=== PATIENT | female | born 1995 | race Caucasian/White ===

== ENCOUNTER 2016-10-09 22:26 | Emergency (ER) | payer OTHER ==
[2016-10-09] MEDS ORDERED: Ibuprofen 600 MG Tab PO ONE (23:49)
--- NOTE | 2016-10-10 00:02 | EDM.PDOC ---
ED HPI GENERAL MEDICAL PROBLEM - General Chief Complaint: General Stated Complaint: ABDOMINAL PAIN Time Seen by Provider: 10/09/16 22:37 Source of Information: Reports: Patient, Family History Limitations: Reports: No limitations - History of Present Illness INITIAL COMMENTS - FREE TEXT/NARRATIVE: 20 years old w f came to the ed with her SO due to pain at her left lower and suprapubic area off and on for 4 weeks. Pain goes from 0-10/10 lasting 10 -30 min. No dysuria, denied . No N/V/D or any other acute medical issues at this time. Onset: gradual Onset Date: 09/08/16 Onset Time: 15:00 Duration: Week(s):, Intermittent Location: Reports: abdomen Quality: Reports: Dull Severity: mild Improves with: Reports: None Worsens with: Reports: None Associated Symptoms: Reports: denies other symptoms Abdominal Pain Score (Numeric/FACES): 4 - Related Data Allergies Allergy/AdvReac Type Severity Reaction Status Date / Time No Known Allergies Allergy Verified 10/09/16 22:35 Home Meds: Home Meds NK [No Known Home Meds] 10/09/16 [History] Past Medical History - Past Health History Medical/Surgical History: Denies Medical/Surgical History Social & Family History - Tobacco Use Smoking Status *Q: Never Smoker - Caffeine Use Caffeine Use: Reports: None - Recreational Drug Use Recreational Drug Use: No ED ROS GENERAL - Review of Systems Review Of Systems: See Below Constitutional: Reports: no symptoms HEENT: Reports: No symptoms Respiratory: Reports: No Symptoms Cardiovascular: Reports: No symptoms Endocrine: Reports: no symptoms GI/Abdominal: Reports: No symptoms : Reports: no symptoms Musculoskeletal: Reports: no symptoms Skin: Reports: no symptoms Neurological: Reports: No Symptoms Psychiatric: Reports: No symptoms Hematologic/Lymphatic: Reports: no symptoms Immunologic: Reports: no symptoms ED EXAM, GENERAL - Physical Exam Exam: See Below Exam Limited By: No limitations General Appearance: alert, WD/WN, mild distress Eye Exam: bilateral eye: normal inspection Ears: normal external exam Ear Exam: bilateral ear: auricle normal Nose: normal inspection, normal mucosa, no blood Throat/Mouth: Normal inspection, Normal lips, Normal teeth, Normal gums, Normal oropharynx, Normal voice, No airway compromise Head: atraumatic, normocephalic Neck: normal inspection, supple, non-tender, full range of motion Respiratory/Chest: no respiratory distress, lungs clear, normal breath sounds, no accessory muscle use, chest non-tender Cardiovascular: normal peripheral pulses, regular rate, rhythm, no edema, no gallop, no JVD, no murmur, no rub Peripheral Pulses: 2+: femoral (L), femoral (R) GI/Abdominal: tender (left lower abdomen/suprapubic area) (Female) Exam: Deferred Rectal (Female) Exam: Deferred Back Exam: normal inspection, full range of motion Extremities: normal inspection, normal range of motion, non-tender, no pedal edema, normal capillary refill Neurological: alert, oriented, CN II-XII intact, normal cognition, normal gait, normal reflexes, no motor/sensory deficits Psychiatric: normal affect, normal mood Skin Exam: Warm, Dry, Intact, Normal color, No rash Lymphatic: no adenopathy Course - Vital Signs Text/Narrative:: 20 years old w f came to the ed with her SO due to pain at her left lower and suprapubic area off and on for 4 weeks. Pain goes from 0-10/10 lasting 10 -30 min. No dysuria, denied . No N/V/D or any other acute medical issues at this time. PE: WDWN WF in NAD, mild pain LLQ of abd. 07/14 Labs: WBC 14K Imaging: CT abd. Mas left adnexa 5.7 cm, US pelvic US recommended Impression: Mass left adnexa Tx: Motrin Plan: Pelvic US at 1pm on 10/12/2016 D/C with instructions Last Recorded V/S: Last Vital Signs Temp 36.6 C 10/09/16 22:37 Pulse 87 10/10/16 01:03 Resp 20 10/09/16 22:37 BP 130/78 10/10/16 01:03 Pulse Ox 100 10/09/16 22:37 - Orders/Labs/Meds Orders: Active Orders 24 hr Category Date Time Status Abdomen Pelvis wo Cont [CT] Stat Exams 10/10/16 00:03 Taken CBC WITH AUTO DIFF [HEME] Stat Lab 10/10/16 00:20 Results Labs: Laboratory Tests 10/09/16 10/09/16 10/10/16 Range/Units 23:15 23:15 00:20 WBC 14.7 H (4.5-12.0) X10-3/uL RBC 5.07 (3.23-5.20) x10(6)uL Hgb 13.6 (11.5-15.5) g/dL Hct 41.2 (30.0-51.3) % MCV 81.3 (80-96) fL MCH 26.7 L (27.7-33.6) pg MCHC 32.9 (32.2-35.4) g/dL RDW 14.2 (11.5-15.5) % Plt Count 238 (125-369) X10(3)uL MPV 8.0 (7.4-10.4) fL Add Manual Diff Yes PT (8.7-11.1) INR (0.89-1.13) Sodium (135-145) mmol/L Potassium (3.5-5.3) mmol/L Chloride (100-110) mmol/L Carbon Dioxide (23-29) mmol/L BUN (5-20) mg/dL Creatinine (0.6-1.3) mg/dL Est Cr Clr Drug Dosing mL/min Estimated GFR (MDRD) (>60) BUN/Creatinine Ratio (9-20) Glucose (80-116) mg/dL Calcium (8.6-10.2) mg/dL Urine Color Red (YELLOW) Urine Appearance Slightly cloudy (CLEAR) Urine pH 7.0 H (5.0-6.5) Ur Specific [place] 1.015 (1.010-1.025) Urine Protein Trace (NEGATIVE) mg/dL Urine Glucose (UA) Normal (NEGATIVE) mg/dL Urine Ketones Negative (NEGATIVE) mg/dL Urine Occult Blood Large H (NEGATIVE) Urine Nitrite Negative (NEGATIVE) Urine Bilirubin Negative (NEGATIVE) Urine Urobilinogen Normal (NEGATIVE) mg/dL Ur Leukocyte Esterase Negative (NEGATIVE) Urine RBC 10-20 H (0) Urine WBC 0-5 (0) Ur Squamous Epith Cells Occasional (NS,R,O) Urine Bacteria Few H (NS) Urine HCG, Qual Negative (NEGATIVE) 10/10/16 10/10/16 Range/Units 00:20 00:20 WBC (4.5-12.0) X10-3/uL RBC (3.23-5.20) x10(6)uL Hgb (11.5-15.5) g/dL Hct (30.0-51.3) % MCV (80-96) fL MCH (27.7-33.6) pg MCHC (32.2-35.4) g/dL RDW (11.5-15.5) % Plt Count (125-369) X10(3)uL MPV (7.4-10.4) fL Add Manual Diff PT 11.6 H (8.7-11.1) INR 1.15 H (0.89-1.13) Sodium 136 (135-145) mmol/L Potassium 3.8 (3.5-5.3) mmol/L Chloride 104 (100-110) mmol/L Carbon Dioxide 22 L (23-29) mmol/L BUN 16 (5-20) mg/dL Creatinine 0.8 (0.6-1.3) mg/dL Est Cr Clr Drug Dosing 95.25 mL/min Estimated GFR (MDRD) > 60 (>60) BUN/Creatinine Ratio 20.0 (9-20) Glucose 116 (80-116) mg/dL Calcium 8.9 (8.6-10.2) mg/dL Urine Color (YELLOW) Urine Appearance (CLEAR) Urine pH (5.0-6.5) Ur Specific [place] (1.010-1.025) Urine Protein (NEGATIVE) mg/dL Urine Glucose (UA) (NEGATIVE) mg/dL Urine Ketones (NEGATIVE) mg/dL Urine Occult Blood (NEGATIVE) Urine Nitrite (NEGATIVE) Urine Bilirubin (NEGATIVE) Urine Urobilinogen (NEGATIVE) mg/dL Ur Leukocyte Esterase (NEGATIVE) Urine RBC (0) Urine WBC (0) Ur Squamous Epith Cells (NS,R,O) Urine Bacteria (NS) Urine HCG, Qual (NEGATIVE) Meds: Medications Discontinued Medications Generic Name Dose Route Start Last Admin Trade Name Freq PRN Reason Stop Dose Admin Ibuprofen 600 mg 10/09/16 23:49 10/09/16 23:53 Motrin PO 10/09/16 23:50 600 mg ONETIME ONE Administration Departure - Departure Time of Disposition: 00:54 Disposition: Home, Self-Care 01 Condition: good Clinical Impression: Adnexal mass, Normal menstrual period Instructions: Pelvic Pain, Female, [id number] Referrals: PCP,None [Primary Care Provider] - Forms: ED Department Discharge Additional Instructions: Please take tylenol or motrin for pain, please follow up with US study this wednesday at 1.00 pm her at [facility]. Please come back to the ed if the symptoms are getting worse acutely. - My Orders Last 24 Hours: My Active Orders 10/10/16 00:03 Abdomen Pelvis wo Cont [CT] Stat 10/10/16 00:20 CBC WITH AUTO DIFF [HEME] Stat - Assessment/Plan Last 24 Hours: My Active Orders 10/10/16 00:03 Abdomen Pelvis wo Cont [CT] Stat 10/10/16 00:20 CBC WITH AUTO DIFF [HEME] Stat
[2016-10-10 01:03] VITALS: BP 130/78
== END 2016-10-10 01:00 | disposition home or self-care (01) ==
LOC: FB.ED 22:26
DX: R19.09 Other intra-abdominal and pelvic swelling, mass and lump (principal); N92.0 Excessive and frequent menstruation with regular cycle
CPT/HCPCS: 36415; 74176; 80048; 81001; 81025; 85025; 85610; 99284; A9270

== ENCOUNTER 2017-01-12 13:10 | Emergency (ER) | payer OTHER ==
--- NOTE | 2017-01-12 14:13 | EDM.PDOC ---
ED HPI GENERAL MEDICAL PROBLEM - General Chief Complaint: Abdominal Pain Stated Complaint: STOMACH PAIN Time Seen by Provider: 01/12/17 14:00 Source of Information: Reports: Patient, Old Records History Limitations: Reports: No Limitations - History of Present Illness INITIAL COMMENTS - FREE TEXT/NARRATIVE: Ileana reports some lower pelvic pain over the past 48 hrs that seems worse on the L side. Pain seems sharp at times, associated with some nausea, although she still feels hungry. There is no fever, chills, sweats, or current voiding sxs. She did have some pain with urination over the weekend, but this has subsided. She is , sexually active, and does not use contraception. Her LMP was 2 weeks ago. Of interest is a PMH of pelvic endometriosis, confirmed in [place], [place] during October 2016. She sought care management specialist and has been taking a pill for sxs which has not helped. 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 Social & Family History - Family History Family Medical History: Unobtainable - Tobacco Use Smoking Status *Q: Never Smoker - Caffeine Use Caffeine Use: Reports: None - Recreational Drug Use Recreational Drug Use: No ED ROS GENERAL - Review of Systems Review Of Systems: See Below Constitutional: Reports: No Symptoms HEENT: Reports: No Symptoms Respiratory: Reports: No Symptoms Cardiovascular: Reports: No Symptoms Endocrine: Reports: No Symptoms GI/Abdominal: Reports: Abdominal Pain, Diarrhea, Nausea : Reports: No Symptoms Musculoskeletal: Reports: No Symptoms Skin: Reports: No Symptoms Neurological: Reports: No Symptoms Psychiatric: Reports: No Symptoms Hematologic/Lymphatic: Reports: No Symptoms Immunologic: Reports: No Symptoms ED EXAM, RENAL/ - Physical Exam Exam: See Below Exam Limited By: No Limitations General Appearance: Alert, WD/WN, No Apparent Distress Neck: Limited Range of Motion Respiratory/Chest: Lungs Clear, Normal Breath Sounds Cardiovascular: Regular Rate, Rhythm, No Edema GI/Abdominal: Normal Bowel Sounds, Soft, No Organomegaly, No Distention, No Mass , Tender (minimal tenderness of lower abdomen) Back Exam: Normal Inspection Extremities: Normal Inspection Neurological: Alert, Oriented, CN II-XII Intact, Normal Cognition, Normal Gait, No Motor/Sensory Deficits Psychiatric: Normal Affect, Normal Mood Skin Exam: Warm, Dry, Intact, Normal Color Lymphatic: No Adenopathy Course - Vital Signs Text/Narrative:: Ileana remained stable at the [facility] ED. Lab work was baseline for this patient, with no meds administered. Ovulation pain is suspected. Last Recorded V/S: Last Vital Signs Temp 36.8 C 01/12/17 13:10 Pulse 87 01/12/17 13:10 Resp 18 01/12/17 13:10 BP 121/67 01/12/17 13:10 Pulse Ox 100 01/12/17 13:10 - Orders/Labs/Meds Labs: Laboratory Tests 01/12/17 01/12/17 01/12/17 Range/Units 14:07 14:07 14:25 WBC 6.6 (4.5-12.0) X10-3/uL RBC 4.83 (3.23-5.20) x10(6)uL Hgb 13.2 (11.5-15.5) g/dL Hct 40.1 (30.0-51.3) % MCV 83.0 (80-96) fL MCH 27.3 L (27.7-33.6) pg MCHC 32.9 (32.2-35.4) g/dL RDW 13.6 (11.5-15.5) % Plt Count 271 (125-369) X10(3)uL MPV 7.5 (7.4-10.4) fL Neut % (Auto) 64.6 (46-82) % Lymph % (Auto) 27.7 (13-37) % [place] % (Auto) 6.4 (4-12) % Eos % (Auto) 1 (1.0-5.0) % Baso % (Auto) 1 (0-2) % Neut # (Auto) 4.3 (1.6-8.3) # Lymph # (Auto) 1.8 (0.6-5.0) # Foard # (Auto) 0.4 (0.0-1.3) # Eos # (Auto) 0.1 (0.0-0.8) # Baso # (Auto) 0.0 (0.0-0.2) # Sodium (135-145) mmol/L Potassium (3.5-5.3) mmol/L Chloride (100-110) mmol/L Carbon Dioxide (23-29) mmol/L BUN (5-20) mg/dL Creatinine (0.6-1.3) mg/dL Est Cr Clr Drug Dosing mL/min Estimated GFR (MDRD) (>60) BUN/Creatinine Ratio (9-20) Glucose (80-116) mg/dL Calcium (8.6-10.2) mg/dL HCG, Quant < 2 L (2.0 - ) mIU/mL Urine Color Yellow (YELLOW) Urine Appearance Clear (CLEAR) Urine pH 7.0 H (5.0-6.5) Ur Specific [place] 1.010 (1.010-1.025) Urine Protein Negative (NEGATIVE) mg/dL Urine Glucose (UA) Normal (NEGATIVE) mg/dL Urine Ketones Negative (NEGATIVE) mg/dL Urine Occult Blood Negative (NEGATIVE) Urine Nitrite Negative (NEGATIVE) Urine Bilirubin Negative (NEGATIVE) Urine Urobilinogen Normal (NEGATIVE) mg/dL Ur Leukocyte Esterase Negative (NEGATIVE) Urine RBC 0-5 (0) Urine WBC 0-5 (0) Ur Squamous Epith Cells Few H (NS,R,O) Urine Bacteria Few H (NS) 01/12/17 Range/Units 14:25 WBC (4.5-12.0) X10-3/uL RBC (3.23-5.20) x10(6)uL Hgb (11.5-15.5) g/dL Hct (30.0-51.3) % MCV (80-96) fL MCH (27.7-33.6) pg MCHC (32.2-35.4) g/dL RDW (11.5-15.5) % Plt Count (125-369) X10(3)uL MPV (7.4-10.4) fL Neut % (Auto) (46-82) % Lymph % (Auto) (13-37) % Foard % (Auto) (4-12) % Eos % (Auto) (1.0-5.0) % Baso % (Auto) (0-2) % Neut # (Auto) (1.6-8.3) # Lymph # (Auto) (0.6-5.0) # Foard # (Auto) (0.0-1.3) # Eos # (Auto) (0.0-0.8) # Baso # (Auto) (0.0-0.2) # Sodium 139 (135-145) mmol/L Potassium 3.6 (3.5-5.3) mmol/L Chloride 105 (100-110) mmol/L Carbon Dioxide 28 (23-29) mmol/L BUN 12 (5-20) mg/dL Creatinine 0.8 (0.6-1.3) mg/dL Est Cr Clr Drug Dosing 94.44 mL/min Estimated GFR (MDRD) > 60 (>60) BUN/Creatinine Ratio 15.0 (9-20) Glucose 95 (80-116) mg/dL Calcium 9.3 (8.6-10.2) mg/dL HCG, Quant (2.0 - ) mIU/mL Urine Color (YELLOW) Urine Appearance (CLEAR) Urine pH (5.0-6.5) Ur Specific [place] (1.010-1.025) Urine Protein (NEGATIVE) mg/dL Urine Glucose (UA) (NEGATIVE) mg/dL Urine Ketones (NEGATIVE) mg/dL Urine Occult Blood (NEGATIVE) Urine Nitrite (NEGATIVE) Urine Bilirubin (NEGATIVE) Urine Urobilinogen (NEGATIVE) mg/dL Ur Leukocyte Esterase (NEGATIVE) Urine RBC (0) Urine WBC (0) Ur Squamous Epith Cells (NS,R,O) Urine Bacteria (NS) Departure - Departure Time of Disposition: 15:27 Disposition: Home, Self-Care 01 Condition: Good Clinical Impression: Ovulation pain - Discharge Information Forms: ED Department Discharge - Problem List & Annotations (1) Ovulation pain SNOMED Code(s): 27577374 Code(s): N94.0 - DAVID Status: Acute Current Visit: Yes Annotation/Comment:: Probable ovulation pain, managed sx with Tylenol or Ibuprofen. - Problem List Review Problem List Initiated/Reviewed/Updated: Yes - Assessment/Plan Plan: Follow up with PCP if needed.
[2017-01-12 15:36] VITALS: BP 111/70
== END 2017-01-12 15:30 | disposition home or self-care (01) ==
LOC: FB.ED 13:10
DX: N94.0 Mittelschmerz (principal)
CPT/HCPCS: 36415; 80048; 81001; 84702; 85025; 99284

== ENCOUNTER 2017-07-16 14:43 | Emergency (ER) | payer OTHER ==
[2017-07-16 15:08] VITALS: BP 121/77
[2017-07-16] MEDS ORDERED: Ketorolac 60 MG/2 ML SDV IM ONE (15:15)
--- NOTE | 2017-07-16 15:21 | EDM.PDOC ---
ED HPI GENERAL MEDICAL PROBLEM - General Chief Complaint: Abdominal Pain Stated Complaint: MISCARRIAGE Time Seen by Provider: 07/16/17 15:00 Source of Information: Reports: Patient History Limitations: Reports: No Limitations - History of Present Illness INITIAL COMMENTS - FREE TEXT/NARRATIVE: c/o cramping pt is a who saw Dr Lipscomb 4d ago, with spotting at 8w gestation by LMP, u /s done showing intrauterine preg at 6w 1d with no heart tones on transvaginal probe felt better next 2d, now with inc'd cramps and spotting x 2d, more severe in past 3h, pt took ibuprofen 2 tabs at home, on arrival here she passed a large clot with placental tissue grossly visible no f/c/d, no n/v, ate lunch, here with labs reviewed from clinic 4d ago HCG 8344, 2d ago HCG 6030 u/a 4d ago with 0-2 RBC, few epi, mod bacteria. did not meet criteria for culture pelvic deferred today, however will empirically tx with amox and Flagyl for possible early endometritis (d/t severity of cramping and bacteria in urine 4d ago) much less pain after Toradol here Treatments BROACH SETTER: Reports: Other Medication(s) Other Treatments BROACH SETTER: Ibuprofen Bilateral Abdominal Pain Score (Numeric/FACES): 8 - Related Data Allergies Allergy/AdvReac Type Severity Reaction Status Date / Time No Known Allergies Allergy Verified 01/12/17 13:51 Home Meds: Home Meds Amoxicillin 500 mg PO TID #15 tab 07/16/17 [Rx] metroNIDAZOLE [Flagyl] 500 mg PO TID #15 tablet 07/16/17 [Rx] Past Medical History - Past Health History Medical/Surgical History: Denies Medical/Surgical History 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 Denies: Nausea, Vomiting : Reports: No Symptoms Musculoskeletal: Reports: No Symptoms Skin: Reports: No Symptoms Neurological: Reports: No Symptoms Psychiatric: Reports: No Symptoms Hematologic/Lymphatic: Reports: No Symptoms Immunologic: Reports: No Symptoms ED EXAM - Physical Exam Exam: See Below Exam Limited By: No Limitations General Appearance: Alert, WD/WN, No Apparent Distress Nose: Normal Inspection, Normal Mucosa, No Blood Throat/Mouth: Normal Inspection, Normal Voice, No Airway Compromise Head: Atraumatic, Normocephalic Neck: Normal Inspection, Supple, Non-Tender, Full Range of Motion Respiratory/Chest: No Respiratory Distress, Lungs Clear, Normal Breath Sounds, No Accessory Muscle Use, Chest Non-Tender Cardiovascular: Regular Rate, Rhythm, No Edema, No Gallop, No Murmur, No Rub GI/Abdominal Exam: Normal Bowel Sounds, Soft, No Organomegaly, No Distention, No Mass, Other (nl BS x 4, soft, slight tender suprapubic area to deep palpation , flanks NT, no CVAT b/l) Back Exam: Normal Inspection Extremities: Normal Inspection, Normal Range of Motion, Non-Tender, No Pedal Edema Neurological: Alert, Oriented, CN II-XII Intact, Normal Cognition, No Motor/ Sensory Deficits Psychiatric: Normal Affect, Normal Mood Skin Exam: Warm, Dry, Intact, Normal Color, No Rash Lymphatic: No Adenopathy Course - Vital Signs Last Recorded V/S: Last Vital Signs Temp 36.2 C 07/16/17 14:48 Pulse 85 07/16/17 14:48 Resp 20 07/16/17 14:48 BP 121/77 07/16/17 14:48 Pulse Ox 100 07/16/17 14:48 - Orders/Labs/Meds Meds: Medications Discontinued Medications Generic Name Dose Route Start Last Admin Trade Name Acacia PRN Reason Stop Dose Admin Ketorolac Tromethamine 60 mg 07/16/17 15:15 07/16/17 15:22 Toradol IM 07/16/17 15:16 60 mg ONETIME ONE Administration Departure - Departure Time of Disposition: 15:50 Disposition: Home, Self-Care 01 Condition: Good Clinical Impression: Complete miscarriage - Discharge Information Prescriptions: Amoxicillin 500 mg PO TID #15 tab metroNIDAZOLE [Flagyl] 500 mg PO TID #15 tablet Instructions: Endometritis, Miscarriage Referrals: Devon Lipscomb MD [Primary Care Provider] - Forms: ED Department Discharge Additional Instructions: To treat any potential infection, take amoxicillin 500 mg 1 tab 3 times a day for 5 days. Also take metronidazole 500 mg 1 tab 3 times a day for 5 days. No alcohol. Rest. Increase fluids. For pain and cramping, take ibuprofen 200 mg 3 tabs and acetaminophen 500 mg 2 tabs 3-4 times a day for [address] Lipscomb in 3 days. Return to ED if you feel worse, have new symptoms or develop a fever. Call your Physician or Return to Emergency Department if: * Your condition worsens in any way. * You develop fever greater than 100.4. * You have vomitting that does not stop with medications. * You have pain that is not controlled with medications.
== END 2017-07-16 15:46 | disposition home or self-care (01) ==
LOC: FB.ED 14:43
DX: O03.9 Complete or unspecified spontaneous abortion without complication (principal)
CPT/HCPCS: 96372; 99283; J1885

== ENCOUNTER 2017-10-10 23:52 | Emergency (ER) | payer OTHER ==
[2017-10-10] MEDS ORDERED: Sodium Chloride 0.9% 1,000 ML IV ONE (23:58)
[2017-10-11] MEDS ORDERED: Ketorolac 30 MG/ML SDV IVPUSH ONE
--- NOTE | 2017-10-11 00:02 | EDM.PDOC ---
ED HPI GENERAL MEDICAL PROBLEM - General Stated Complaint: ABD PAIN Time Seen by Provider: 10/10/17 23:52 Source of Information: Reports: Patient, Family (mom) History Limitations: Reports: No Limitations - History of Present Illness INITIAL COMMENTS - FREE TEXT/NARRATIVE: 21 y.o.w.f came with her mom to the ed due to mid lower abd pain with painful urinations. Pt has currently her menstrual period. No N/V/D no F/C no other acute medical issues. BP 133/82 Pulse 82 RR 18 Pulse ox 100% on RA temp 36.8 Onset Date: 10/11/17 Onset Time: 07:00 Duration: Hour(s): Location: Reports: Abdomen Quality: Reports: Ache, Burning, Dull Severity: Moderate Improves with: Reports: Rest Worsens with: Reports: Movement Context: Reports: Other (has menstrual period) Associated Symptoms: Reports: No Other Symptoms mid lower abdomen Pain Score (Numeric/FACES): 6 - Related Data Allergies Allergy/AdvReac Type Severity Reaction Status Date / Time No Known Allergies Allergy Verified 10/11/17 00:01 Home Meds: Home Meds Ciprofloxacin HCl [Cipro] 500 mg PO BID #20 tablet 10/11/17 [Rx] Phenazopyridine [Pyridium] 100 mg PO TID #9 tablet 10/11/17 [Rx] Past Medical History - Past Health History Medical/Surgical History: Denies Medical/Surgical History Cardiovascular History: Reports: Heart Murmur 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 Social & Family History - Family History Family Medical History: Unobtainable - Tobacco Use Smoking Status *Q: Never Smoker Second Hand Smoke Exposure: No - Caffeine Use Caffeine Use: Reports: None - Recreational Drug Use Recreational Drug Use: No ED ROS GENERAL - Review of Systems Review Of Systems: See Below Constitutional: Reports: No Symptoms HEENT: Reports: No Symptoms Respiratory: Reports: No Symptoms Cardiovascular: Reports: No Symptoms Endocrine: Reports: No Symptoms GI/Abdominal: Reports: Abdominal Pain : Reports: Dysuria Musculoskeletal: Reports: No Symptoms Skin: Reports: No Symptoms Neurological: Reports: No Symptoms Psychiatric: Reports: No Symptoms Hematologic/Lymphatic: Reports: No Symptoms Immunologic: Reports: No Symptoms ED EXAM, GI/ABD - Physical Exam Exam: See Below Exam Limited By: No Limitations General Appearance: Alert, WD/WN Eyes: Bilateral: Normal Appearance Ears: Normal External Exam Nose: Normal Inspection Throat/Mouth: Normal Inspection, Normal Lips, Normal Teeth Head: Atraumatic, Normocephalic Neck: Normal Inspection, Supple, Non-Tender Respiratory/Chest: No Respiratory Distress, Lungs Clear, Normal Breath Sounds, Chest Non-Tender Cardiovascular: Normal Peripheral Pulses, Regular Rate, Rhythm, No Edema, No Gallop, No Rub GI/Abdominal Exam: Normal Bowel Sounds, No Organomegaly, No Distention, Tender ( suprapubic area) (Female) Exam: Deferred Rectal (Female) Exam: Deferred Back Exam: Normal Inspection Extremities: Normal Inspection, Normal Range of Motion, Non-Tender, No Pedal Edema, Normal Capillary Refill Neurological: Alert Psychiatric: Normal Affect, Normal Mood Skin Exam: Warm, Dry, Intact Lymphatic: No Adenopathy Course - Vital Signs Text/Narrative:: 21 y.o.w.f came with her mom to the ed due to mid lower abd pain with painful urinations. Pt has currently her menstrual period. No N/V/D no F/C no other acute medical issues. BP 133/82 Pulse 82 RR 18 Pulse ox 100% on RA temp 36.8 PE: WNWD F with suprapubic pain, dysuria, current menstrual period UA: Pos for UTI Impression: Menstrual pain, UTI Tx: Toradol, Pyridium and Levoqine Reexam: Pt was 100% painfree Plan: D/C with instructions Last Recorded V/S: Last Vital Signs Temp 36.8 C 10/11/17 01:56 Pulse 94 10/11/17 01:56 Resp 16 10/11/17 01:56 BP 128/72 10/11/17 01:56 Pulse Ox 98 10/11/17 01:56 - Orders/Labs/Meds Orders: Active Orders 24 hr Category Date Time Status CULTURE URINE [RM] Stat Lab 10/11/17 00:05 Ordered HCG QUALITATIVE,URINE [URCHEM] Stat Lab 10/11/17 00:05 Ordered UA W/MICROSCOPIC [URIN] Stat Lab 10/11/17 00:05 Ordered Labs: Laboratory Tests 10/11/17 10/11/17 10/11/17 Range/Units 00:05 00:05 00:15 WBC 10.8 (4.5-12.0) X10-3/uL RBC 4.70 (3.23-5.20) x10(6)uL Hgb 13.4 (11.5-15.5) g/dL Hct 39.6 (30.0-51.3) % MCV 84.2 (80-96) fL MCH 28.5 (27.7-33.6) pg MCHC 33.9 (32.2-35.4) g/dL RDW 12.9 (11.5-15.5) % Plt Count 267 (125-369) X10(3)uL MPV 7.9 (7.4-10.4) fL Neut % (Auto) 74.9 (46-82) % Lymph % (Auto) 17.9 (13-37) % [place] % (Auto) 6.1 (4-12) % Eos % (Auto) 1 (1.0-5.0) % Baso % (Auto) 0 (0-2) % Neut # (Auto) 8.1 (1.6-8.3) # Lymph # (Auto) 1.9 (0.6-5.0) # [place] # (Auto) 0.7 (0.0-1.3) # Eos # (Auto) 0.1 (0.0-0.8) # Baso # (Auto) 0.0 (0.0-0.2) # Sodium (135-145) mmol/L Potassium (3.5-5.3) mmol/L Chloride (100-110) mmol/L Carbon Dioxide (21-32) mmol/L BUN (7-18) mg/dL Creatinine (0.55-1.02) mg/dL Est Cr Clr Drug Dosing mL/min Estimated GFR (MDRD) (>60) BUN/Creatinine Ratio (9-20) Glucose (80-116) mg/dL Lactic Acid (0.4-2.2) mmol/L Calcium (8.6-10.2) mg/dL Urine Color Red (YELLOW) Urine Appearance Cloudy (CLEAR) Urine pH 5.0 (5.0-6.5) Ur Specific [place] 1.020 (1.010-1.025) Urine Protein 30 H (NEGATIVE) mg/dL Urine Glucose (UA) Normal (NEGATIVE) mg/dL Urine Ketones Negative (NEGATIVE) mg/dL Urine Occult Blood Large H (NEGATIVE) Urine Nitrite Negative (NEGATIVE) Urine Bilirubin Negative (NEGATIVE) Urine Urobilinogen 1 H (NEGATIVE) mg/dL Ur Leukocyte Esterase Large H (NEGATIVE) Urine RBC Packed H (0) Urine WBC 5-10 (0) Ur Squamous Epith Cells Occasional (NS,R,O) Urine Bacteria Few H (NS) Urine HCG, Qual Negative (NEGATIVE) 10/11/17 10/11/17 Range/Units 00:15 00:15 WBC (4.5-12.0) X10-3/uL RBC (3.23-5.20) x10(6)uL Hgb (11.5-15.5) g/dL Hct (30.0-51.3) % MCV (80-96) fL MCH (27.7-33.6) pg MCHC (32.2-35.4) g/dL RDW (11.5-15.5) % Plt Count (125-369) X10(3)uL MPV (7.4-10.4) fL Neut % (Auto) (46-82) % Lymph % (Auto) (13-37) % [place] % (Auto) (4-12) % Eos % (Auto) (1.0-5.0) % Baso % (Auto) (0-2) % Neut # (Auto) (1.6-8.3) # Lymph # (Auto) (0.6-5.0) # [place] # (Auto) (0.0-1.3) # Eos # (Auto) (0.0-0.8) # Baso # (Auto) (0.0-0.2) # Sodium 138 (135-145) mmol/L Potassium 3.4 L (3.5-5.3) mmol/L Chloride 103 (100-110) mmol/L Carbon Dioxide 25 (21-32) mmol/L BUN 17 (7-18) mg/dL Creatinine 0.8 (0.55-1.02) mg/dL Est Cr Clr Drug Dosing 98.41 mL/min Estimated GFR (MDRD) > 60 (>60) BUN/Creatinine Ratio 21.3 H (9-20) Glucose 105 (80-116) mg/dL Lactic Acid 0.4 (0.4-2.2) mmol/L Calcium 9.0 (8.6-10.2) mg/dL Urine Color (YELLOW) Urine Appearance (CLEAR) Urine pH (5.0-6.5) Ur Specific [place] (1.010-1.025) Urine Protein (NEGATIVE) mg/dL Urine Glucose (UA) (NEGATIVE) mg/dL Urine Ketones (NEGATIVE) mg/dL Urine Occult Blood (NEGATIVE) Urine Nitrite (NEGATIVE) Urine Bilirubin (NEGATIVE) Urine Urobilinogen (NEGATIVE) mg/dL Ur Leukocyte Esterase (NEGATIVE) Urine RBC (0) Urine WBC (0) Ur Squamous Epith Cells (NS,R,O) Urine Bacteria (NS) Urine HCG, Qual (NEGATIVE) Meds: Medications Discontinued Medications Generic Name Dose Route Start Last Admin Trade Name Freq PRN Reason Stop Dose Admin Sodium Chloride 1,000 mls @ 999 mls/hr 10/10/17 23:58 10/11/17 01:14 Normal Saline IV 10/11/17 00:58 Not Given .BOLUS ONE Ketorolac Tromethamine 30 mg 10/11/17 00:00 10/11/17 01:11 Toradol IVPUSH 10/11/17 00:01 Not Given ONETIME ONE Ketorolac Tromethamine 60 mg 10/11/17 01:09 10/11/17 01:16 Toradol IM 10/11/17 01:10 60 mg ONETIME ONE Administration Levofloxacin 500 mg 10/11/17 00:44 10/11/17 01:21 Levaquin PO 10/11/17 00:45 500 mg ONETIME STA Administration Phenazopyridine HCl 95 mg 10/11/17 00:44 10/11/17 01:21 Urinary Pain Relief PO 10/11/17 00:45 95 mg ONETIME STA Administration Departure - Departure Time of Disposition: 01:45 Disposition: Home, Self-Care 01 Condition: Good Clinical Impression: Menstrual pain UTI (urinary tract infection) Qualifiers: Urinary tract infection type: acute cystitis Hematuria presence: with hematuria Qualified Code(s): N30.01 - Acute cystitis with hematuria - Discharge Information Prescriptions: Ciprofloxacin HCl [Cipro] 500 mg PO BID #20 tablet Phenazopyridine [Pyridium] 100 mg PO TID #9 tablet Instructions: Urinary Tract Infection, Adult, [id number], Dysmenorrhea, Easy- to-Read Referrals: Devon Lipscomb MD [Primary Care Provider] - Forms: ED Department Discharge Additional Instructions: Please increase water intake, take the meds as recommended, Motrin 600 mg for menstrual pain (with food), please follow up, come back to the ed if your symptoms get worse acutely - My Orders Last 24 Hours: My Active Orders 10/11/17 00:05 CULTURE URINE [RM] Stat HCG QUALITATIVE,URINE [URCHEM] Stat UA W/MICROSCOPIC [URIN] Stat - Assessment/Plan Last 24 Hours: My Active Orders 10/11/17 00:05 CULTURE URINE [RM] Stat HCG QUALITATIVE,URINE [URCHEM] Stat UA W/MICROSCOPIC [URIN] Stat
[2017-10-11] MEDS ORDERED: Levofloxacin 250 MG Tab PO STA (00:44)
[2017-10-11] MEDS ORDERED: Phenazopyridine 95 MG Tab PO STA (00:44)
[2017-10-11] MEDS ORDERED: Ketorolac 60 MG/2 ML SDV IM ONE (01:09)
[2017-10-11 01:58] VITALS: BP 128/72
== END 2017-10-11 01:57 | disposition home or self-care (01) ==
LOC: FB.ED 23:52
DX: N94.6 Dysmenorrhea, unspecified (principal); N30.01 Acute cystitis with hematuria
CPT/HCPCS: 36415; 80048; 81001; 81025; 83605; 85025; 87086; 96372; 99284; A9270; J1885

== ENCOUNTER 2019-02-11 21:37 | Observation (INO) | payer OTHER ==
[2019-02-11] MEDS ORDERED: Morphine 10 MG/ML Syringe IM ONE (21:56)
[2019-02-11] MEDS ORDERED: hydrOXYzine HCl 50 MG/ML SDV IM ONE (21:57)
[2019-02-11] MEDS ORDERED: Morphine 10 MG/ML SDV ONE (22:01)
--- NOTE | 2019-02-11 22:02 | EDM.PDOC ---
ED HPI GENERAL MEDICAL PROBLEM - General Chief Complaint: Back Pain or Injury Stated Complaint: BACK PAIN,CRAMPING Time Seen by Provider: 02/11/19 22:00 Source of Information: Reports: Patient History Limitations: Reports: No Limitations - History of Present Illness INITIAL COMMENTS - FREE TEXT/NARRATIVE: 23 yo female with severe back pain. 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 Pain is across the lower back,non radiating,and not responsive to Tylenol. Unable to walk. However,no weakness,numbness,GI or Urinary sphincter incontinence. She also denies a [place] fever or chills. Of note,she does have a h/o dysmenorrhea,and is currently on her period. 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 ED EXAM,LOWER BACK PAIN/INJURY - Physical Exam Exam: See Below Exam Limited By: No Limitations General Appearance: Alert, WD/WN, Anxious Ears: Normal External Exam Neck: Normal Inspection Respiratory/Chest: No Respiratory Distress Cardiovascular: Normal Peripheral Pulses GI/Abdominal: Normal Bowel Sounds, Distended. No: Non-Tender Back Exam: Normal Inspection, Decreased Range of Motion, Muscle Spasm, Paraspinal Tenderness, Vertebral Tenderness. No: Full Range of Motion, CVA Tenderness (R) Extremities: Normal Inspection Neurological: Alert, Normal Mood/Affect, Normal Dorsiflexion, Oriented x 3 Psychiatric: Tearful Skin Exam: Warm Course - Vital Signs Text/Narrative:: No improvement with initial narcotics. Will admit for observation. Consider CT in AM Last Recorded V/S: Last Vital Signs Temp 97.5 F 02/11/19 21:45 Pulse 103 H 02/11/19 21:45 Resp 16 02/11/19 21:45 BP 148/85 H 02/11/19 21:45 Pulse Ox 100 02/11/19 21:45 - Orders/Labs/Meds Orders: Active Orders 24 hr Category Date Time Status UA W/MICROSCOPIC [URIN] Stat Lab 02/11/19 21:56 Ordered Labs: Laboratory Tests 02/11/19 02/11/19 02/11/19 Range/Units 22:35 22:35 22:35 WBC 8.7 (4.5-12.0) X10-3/uL RBC 5.07 (3.23-5.20) x10(6)uL Hgb 14.4 (11.5-15.5) g/dL Hct 42.9 (30.0-51.3) % MCV 84.5 (80-96) fL MCH 28.5 (27.7-33.6) pg MCHC 33.7 (32.2-35.4) g/dL RDW 12.9 (11.5-15.5) % Plt Count 287 (125-369) X10(3)uL MPV 7.6 (7.4-10.4) fL Neut % (Auto) 70.4 (46-82) % Lymph % (Auto) 22.8 (13-37) % [place] % (Auto) 5.6 (4-12) % Eos % (Auto) 1 (1.0-5.0) % Baso % (Auto) 0 (0-2) % Neut # (Auto) 6.1 (1.6-8.3) # Lymph # (Auto) 2.0 (0.6-5.0) # [place] # (Auto) 0.5 (0.0-1.3) # Eos # (Auto) 0.1 (0.0-0.8) # Baso # (Auto) 0.0 (0.0-0.2) # Sodium 141 (135-145) mmol/L Potassium 3.7 (3.5-5.3) mmol/L Chloride 105 (100-110) mmol/L Carbon Dioxide 24 (21-32) mmol/L BUN 12 (7-18) mg/dL Creatinine 0.9 (0.55-1.02) mg/dL Est Cr Clr Drug Dosing TNP Estimated GFR (MDRD) > 60 (>60) BUN/Creatinine Ratio 13.3 (9-20) Glucose 106 (80-116) mg/dL Calcium 8.9 (8.6-10.2) mg/dL Total Bilirubin 0.8 (0.1-1.3) mg/dL AST 19 (5-25) IU/L ALT 17 (12-36) U/L Alkaline Phosphatase 60 (56-112) IU/L Total Protein 8.0 (6.0-8.0) g/dL Albumin 4.0 (3.5-5.2) g/dL Globulin 4.0 g/dL Albumin/Globulin Ratio 1.0 HCG, Quant < 5 L (<5) mIU/mL Meds: Medications Discontinued Medications Generic Name Dose Route Start Last Admin Trade Name Freq PRN Reason Stop Dose Admin Hydromorphone HCl 2 mg 02/11/19 22:41 Dilaudid IVPUSH 02/11/19 22:42 ONETIME ONE Hydromorphone HCl 1 mg 02/11/19 22:50 02/11/19 22:55 Dilaudid IVPUSH 02/11/19 22:51 1 mg ONETIME ONE Administration Hydromorphone HCl 1 mg 02/11/19 23:20 Dilaudid IVPUSH 02/11/19 23:21 ONETIME ONE Hydroxyzine HCl 50 mg 02/11/19 21:57 02/11/19 22:05 Vistaril IM 02/11/19 21:58 50 mg ONETIME ONE Administration Morphine Sulfate 10 mg 02/11/19 21:56 02/11/19 22:05 Morphine IM 02/11/19 21:57 Not Given ONETIME ONE Morphine Sulfate Confirm 02/11/19 22:01 02/11/19 22:05 Morphine Administered 02/11/19 22:02 10 mg Dose Administration 10 mg .ROUTE .STK-MED ONE Ondansetron HCl 8 mg 02/11/19 22:41 02/11/19 22:55 Zofran IVPUSH 02/11/19 22:42 8 mg ONETIME ONE Administration Departure - Departure Time of Disposition: 23:32 Disposition: Refer to Observation Condition: Good Clinical Impression: Back pain Qualifiers: Back pain location: low back pain Sciatica presence: without sciatica - Discharge Information Referrals: PCP,None [Primary Care Provider] - Forms: ED Department Discharge - Problem List & Annotations (1) Back pain SNOMED Code(s): 013125013 Code(s): M54.9 - DORSALGIA, UNSPECIFIED Status: Acute Current Visit: Yes Qualifiers: Back pain location: low back pain Sciatica presence: without sciatica - Problem List Review Problem List Initiated/Reviewed/Updated: Yes - My Orders Last 24 Hours: My Active Orders 02/11/19 21:56 UA W/MICROSCOPIC [URIN] Stat - Assessment/Plan Last 24 Hours: My Active Orders 02/11/19 21:56 UA W/MICROSCOPIC [URIN] Stat Plan: Morphine and Vistaril IM.I also tried Dilaudid. Not much improvement. Initial labs ok. Will admit overnight. Consider CT in AM.
[2019-02-11] MEDS ORDERED: Ondansetron 4 MG/2 ML SDV IVPUSH ONE (22:41)
[2019-02-11] MEDS ORDERED: HYDROmorphone 2 MG/ML SDV IVPUSH ONE ×3 (22:41→23:20)
[2019-02-11] MEDS ORDERED: Cyclobenzaprine 10 MG Tab PO ONE (23:32)
[2019-02-11] MEDS ORDERED: Acetaminophen 325 MG Tab PO PRN (23:32)
[2019-02-11] MEDS ORDERED: Ondansetron 4 MG/2 ML SDV IV PRN (23:32)
[2019-02-11] MEDS: Ketorolac 30 MG/ML SDV IVPUSH SCH (23:51)
[2019-02-12] MEDS: HYDROmorphone 2 MG/ML SDV IVPUSH PRN ×2 (03:45→20:29)
[2019-02-12] MEDS: Sodium Chloride 0.9% 10 ML Syringe FLUSH PRN ×6 (03:48→23:18)
[2019-02-12] MEDS: Ketorolac 30 MG/ML SDV IVPUSH SCH ×4 (05:53→23:16)
--- NOTE | 2019-02-12 07:50 | PCM.HP ---
H&P History of Present Illness - General Date of Service: 02/12/19 Admit Problem/Dx: Admission Diagnosis/Problem Admission Diagnosis/Problem Back pain Source of Information: Patient, Old Records - History of Present Illness Initial Comments - Free Text/Narative: 23 yr old female presented with severe back pain, goes across her back, nothing makes it better, movement makes it worse, located in lower back. Describes as sharp, 6/10. Hurts to lift her legs, can bend them. No weakness, numbness, tingling in legs, no bowel/bladder incontinence. Currently on her period. No specific trauma or injury. 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 Had surgery for endometriosis in September, no other abdominal surgeries. Does not usually have back pain with her periods just cramping and pelvic pain. back Pain Score (Numeric/FACES): 6 - Related Data Allergies/Adverse Reactions: Allergies Allergy/AdvReac Type Severity Reaction Status Date / Time No Known Allergies Allergy Verified 02/11/19 22:24 Home Medications: Home Meds NK [No Known Home Meds] 02/11/19 [History] Past Medical History - Past Health History Medical/Surgical History: Denies Medical/Surgical History HEENT History: Reports: None Cardiovascular History: Reports: Heart Murmur Respiratory History: Reports: None Gastrointestinal History: Reports: None Genitourinary History: Reports: None [employer] History: Reports: Endometriosis, Spontaneous , Other (See Below) Other OB/BYN History: has very painful menstrations Musculoskeletal History: Reports: None Neurological History: Reports: Other (See Below) Other Neuro History: here for low backpain no acute injury Psychiatric History: Reports: None Endocrine/Metabolic History: Reports: Other (See Below) Other Endocrine/Metabolic History: some thyroid problems not taking meds Hematologic History: Reports: None Dermatologic History: Reports: None - Infectious Disease History Infectious Disease History: Reports: Chicken Pox - Past Surgical History HEENT Surgical History: Reports: Naso-Sinus Surgery, Oral Surgery, Other (See Below) Other HEENT Surgeries/Procedures: wisdom teeth removed Cardiovascular Surgical History: Reports: None Respiratory Surgical History: Reports: None GI Surgical History: Reports: None Female Surgical History: Reports: Endometrial Ablation, Other (See Below) Other Female Surgeries/Procedures: burnt some endometrial, also removed cysts Endocrine Surgical History: Reports: None Neurological Surgical History: Reports: None Musculoskeletal Surgical History: Reports: None Dermatological Surgical History: Reports: None Social & Family History - Family History Family Medical History: Noncontributory - Tobacco Use Smoking Status *Q: Never Smoker Second Hand Smoke Exposure: No - Caffeine Use Caffeine Use: Reports: Soda - Recreational Drug Use Recreational Drug Use: No H&P Review of Systems - Review of Systems: Review Of Systems: See Below General: Reports: Fever, Chills, Malaise, Weakness Pulmonary: Reports: No Symptoms Cardiovascular: Reports: No Symptoms Gastrointestinal: Reports: Nausea. Denies: Abdominal Pain, Constipation, Diarrhea, Vomiting Genitourinary: Reports: Other (hx endometrosis, current on period.). Denies: Dysuria, Frequency, Urgency, Hematuria Musculoskeletal: Reports: Back Pain, Muscle Pain, Muscle Stiffness. Denies: Leg Pain Skin: Reports: No Symptoms Psychiatric: Reports: No Symptoms Neurological: Reports: Difficulty Walking. Denies: Numbness, Paresthesia, Tingling, Weakness Exam - Exam Exam: See Below - Vital Signs Vital Signs: Last Vital Signs Temp 36.3 C 02/12/19 00:00 Pulse 80 02/12/19 00:00 Resp 18 02/12/19 00:00 BP 119/79 02/12/19 00:00 Pulse Ox 97 02/12/19 00:00 Weight: 73.437 kg - Exam General: Alert, Oriented, Cooperative Lungs: Clear to Auscultation, Normal Respiratory Effort Cardiovascular: Regular Rate, Regular Rhythm GI/Abdominal Exam: Normal Bowel Sounds, Soft, Non-Tender, No Distention Back Exam: Normal Inspection, Decreased Range of Motion, Muscle Spasm, Paraspinal Tenderness. No: CVA Tenderness (R), CVA Tenderness (L) Extremities: No Pedal Edema Peripheral Pulses: 2+: Radial (L), Radial (R), Posterior Tibial (L), Posterior Tibial (R), Dorsalis Pedis (L), Dorsalis Pedis (R) Skin: Warm, Dry, Intact Neurological: Normal Tone, Sensation Intact, Other (pain in back with straight leg raise but not down leg, able to bend at knee, exam limited due to pain.) Neuro Extensive - Mental Status: Normal Mood/Affect - Patient Data Lab Results Last 24 hrs: Laboratory Results - last 24 hr 02/11/19 02/11/19 02/11/19 Range/Units 22:35 22:35 22:35 WBC 8.7 (4.5-12.0) X10-3/uL RBC 5.07 (3.23-5.20) x10(6)uL Hgb 14.4 (11.5-15.5) g/dL Hct 42.9 (30.0-51.3) % MCV 84.5 (80-96) fL MCH 28.5 (27.7-33.6) pg MCHC 33.7 (32.2-35.4) g/dL RDW 12.9 (11.5-15.5) % Plt Count 287 (125-369) X10(3)uL MPV 7.6 (7.4-10.4) fL Neut % (Auto) 70.4 (46-82) % Lymph % (Auto) 22.8 (13-37) % [place] % (Auto) 5.6 (4-12) % Eos % (Auto) 1 (1.0-5.0) % Baso % (Auto) 0 (0-2) % Neut # (Auto) 6.1 (1.6-8.3) # Lymph # (Auto) 2.0 (0.6-5.0) # [place] # (Auto) 0.5 (0.0-1.3) # Eos # (Auto) 0.1 (0.0-0.8) # Baso # (Auto) 0.0 (0.0-0.2) # Sodium 141 (135-145) mmol/L Potassium 3.7 (3.5-5.3) mmol/L Chloride 105 (100-110) mmol/L Carbon Dioxide 24 (21-32) mmol/L BUN 12 (7-18) mg/dL Creatinine 0.9 (0.55-1.02) mg/dL Est Cr Clr Drug Dosing TNP Estimated GFR (MDRD) > 60 (>60) BUN/Creatinine Ratio 13.3 (9-20) Glucose 106 (80-116) mg/dL Calcium 8.9 (8.6-10.2) mg/dL Total Bilirubin 0.8 (0.1-1.3) mg/dL AST 19 (5-25) IU/L ALT 17 (12-36) U/L Alkaline Phosphatase 60 (56-112) IU/L Total Protein 8.0 (6.0-8.0) g/dL Albumin 4.0 (3.5-5.2) g/dL Globulin 4.0 g/dL Albumin/Globulin Ratio 1.0 HCG, Quant < 5 L (<5) mIU/mL Urine Color (YELLOW) Urine Appearance (CLEAR) Urine pH (5.0-6.5) Ur Specific [place] (1.010-1.025) Urine Protein (NEGATIVE) mg/dL Urine Glucose (UA) (NORMAL) mg/dL Urine Ketones (NEGATIVE) mg/dL Urine Occult Blood (NEGATIVE) Urine Nitrite (NEGATIVE) Urine Bilirubin (NEGATIVE) Urine Urobilinogen (NEGATIVE) mg/dL Ur Leukocyte Esterase (NEGATIVE) Urine RBC (0-5) Urine WBC (0-5) Ur Squamous Epith Cells (NS,R,O) Urine Bacteria (NS) 02/12/19 Range/Units 04:10 WBC (4.5-12.0) X10-3/uL RBC (3.23-5.20) x10(6)uL Hgb (11.5-15.5) g/dL Hct (30.0-51.3) % MCV (80-96) fL MCH (27.7-33.6) pg MCHC (32.2-35.4) g/dL RDW (11.5-15.5) % Plt Count (125-369) X10(3)uL MPV (7.4-10.4) fL Neut % (Auto) (46-82) % Lymph % (Auto) (13-37) % [place] % (Auto) (4-12) % Eos % (Auto) (1.0-5.0) % Baso % (Auto) (0-2) % Neut # (Auto) (1.6-8.3) # Lymph # (Auto) (0.6-5.0) # [place] # (Auto) (0.0-1.3) # Eos # (Auto) (0.0-0.8) # Baso # (Auto) (0.0-0.2) # Sodium (135-145) mmol/L Potassium (3.5-5.3) mmol/L Chloride (100-110) mmol/L Carbon Dioxide (21-32) mmol/L BUN (7-18) mg/dL Creatinine (0.55-1.02) mg/dL Est Cr Clr Drug Dosing Estimated GFR (MDRD) (>60) BUN/Creatinine Ratio (9-20) Glucose (80-116) mg/dL Calcium (8.6-10.2) mg/dL Total Bilirubin (0.1-1.3) mg/dL AST (5-25) IU/L ALT (12-36) U/L Alkaline Phosphatase (56-112) IU/L Total Protein (6.0-8.0) g/dL Albumin (3.5-5.2) g/dL Globulin g/dL Albumin/Globulin Ratio HCG, Quant (<5) mIU/mL Urine Color Yellow (YELLOW) Urine Appearance Cloudy (CLEAR) Urine pH 6.5 (5.0-6.5) Ur Specific [place] 1.020 (1.010-1.025) Urine Protein 30 H (NEGATIVE) mg/dL Urine Glucose (UA) Normal (NORMAL) mg/dL Urine Ketones Negative (NEGATIVE) mg/dL Urine Occult Blood Large H (NEGATIVE) Urine Nitrite Negative (NEGATIVE) Urine Bilirubin Negative (NEGATIVE) Urine Urobilinogen Normal (NEGATIVE) mg/dL Ur Leukocyte Esterase Small (NEGATIVE) Urine RBC >100 H (0-5) Urine WBC 10-20 H (0-5) Ur Squamous Epith Cells Few H (NS,R,O) Urine Bacteria Moderate H (NS) Result Diagrams: 02/11/19 22:35 02/11/19 22:35 - Problem List (1) Back pain SNOMED Code(s): 027492260 ICD Code: M54.9 - DORSALGIA, UNSPECIFIED Status: Acute Current Visit: Yes Qualifiers: Back pain location: low back pain Sciatica presence: without sciatica (2) Normal menstrual period SNOMED Code(s): 261933200 ICD Code: [id number] - Status: Acute Current Visit: No Problem List Initiated/Reviewed/Updated: Yes Orders Last 24hrs: Active Orders 24 hr Category Date Time Status Patient Status [ADT] Routine ADT 02/11/19 23:32 Active Oxygen Therapy [RC] PRN Care 02/11/19 23:32 Active Up With Assistance [RC] ASDIRECTED Care 02/11/19 23:32 Active VTE/DVT Education [RC] Per Unit Routine Care 02/11/19 23:32 Active Vital Signs [RC] Q8H Care 02/11/19 23:32 Active CULTURE URINE [RM] Routine Lab 02/12/19 04:10 Received Acetaminophen [Tylenol] Med 02/11/19 23:32 Active 650 mg PO Q4H PRN HYDROmorphone [Dilaudid] Med 02/11/19 23:32 Active 0.5 mg IVPUSH Q2H PRN Ketorolac [Toradol] Med 02/11/19 23:45 Active 30 mg IVPUSH Q6H Ondansetron [Zofran] Med 02/11/19 23:32 Active 4 mg IV Q6H PRN Sodium Chloride 0.9% [Saline Flush] Med 02/12/19 00:27 Active 10 ml FLUSH ASDIRECTED PRN Peripheral IV Insertion Adult [OM.PC] Routine Oth 02/11/19 21:45 Ordered Resuscitation Status Routine Resus Stat 02/11/19 23:32 Ordered Medication Orders Acetaminophen (Tylenol) 650 mg PO Q4H PRN PRN Reason: Pain (Mild 1-3)/fever Last Admin: 02/12/19 01:20 Dose: 650 mg Hydromorphone HCl (Dilaudid) 0.5 mg IVPUSH Q2H PRN PRN Reason: Pain (severe 7-10) Last Admin: 02/12/19 03:45 Dose: 0.5 mg Ketorolac Tromethamine (Toradol) 30 mg IVPUSH Q6H [facility] Stop: 02/16/19 23:34 Last Admin: 02/12/19 05:53 Dose: 30 mg Admin: 02/11/19 23:51 Dose: 30 mg Ondansetron HCl (Zofran) 4 mg IV Q6H PRN PRN Reason: Nausea/Vomiting Sodium Chloride (Saline Flush) 10 ml FLUSH ASDIRECTED PRN PRN Reason: Keep Vein Open Last Admin: 02/12/19 05:55 Dose: 10 ml Admin: 02/12/19 03:48 Dose: 10 ml Assessment/Plan Comment:: 1. Admit for pain control and further evaluation. 2. Dilaudid 05 mg IV q2h prn, Tylenol & Toradol prn, added Tizanidine 4 mg q6h prn muscle spasms. 3. had discussed getting more imaging as to cause, discussed we can do a CT as MRI is not available today. Patient is ok with doing the CT. 4. Heat therapy to low back qid & prn 5. Full Code.
[2019-02-12] MEDS: tiZANidine 4 MG Tab PO SCH ×3 (09:34→20:57)
[2019-02-12] MEDS: Bisacodyl 5 MG Tab PO PRN (20:30)
[2019-02-13 01:08] VITALS: PULSE 66
[2019-02-13] MEDS: tiZANidine 4 MG Tab PO SCH ×3 (02:06→15:46)
[2019-02-13] MEDS: HYDROmorphone 2 MG/ML SDV IVPUSH PRN (02:08)
[2019-02-13] MEDS: Sodium Chloride 0.9% 10 ML Syringe FLUSH PRN ×3 (02:11→11:43)
[2019-02-13] MEDS: Ketorolac 30 MG/ML SDV IVPUSH SCH ×2 (06:10→11:38)
[2019-02-13] MEDS ORDERED: Prenatal Multivitamin with Calcium/Folic Acid/Fe Fumarate Cap PO SCH (09:00)
--- NOTE | 2019-02-13 10:48 | PCM.DCSUM1 ---
Discharge Summary - Hospital Course HPI Initial Comments: 23 yr old female presented with severe back pain, goes across her back, nothing makes it better, movement makes it worse, located in lower back. Describes as sharp, 6/10. Hurts to lift her legs, can bend them. No weakness, numbness, tingling in legs, no bowel/bladder incontinence. Currently on her period. No specific trauma or injury. 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 Had surgery for endometriosis in September, no other abdominal surgeries. Does not usually have back pain with her periods just cramping and pelvic pain. Diagnosis: Stroke: No - Discharge Data Discharge Date: 02/13/19 Discharge Disposition: Home, Self-Care 01 Condition: Good - Discharge Diagnosis/Problem(s) (1) Back pain SNOMED Code(s): 282421258 ICD Code: M54.9 - DORSALGIA, UNSPECIFIED Status: Resolved Current Visit: Yes Qualifiers: Back pain location: low back pain Sciatica presence: without sciatica (2) Normal menstrual period SNOMED Code(s): 409733469 ICD Code: [id number] - Status: Acute Current Visit: No - Patient Summary/Data Consults: Consultations 02/13/19 07:00 OT Evaluation and Treatment [CONS] Routine Please Evaluate and Treat. OT Reason for Consult: ADL's Discharge Disposition: Home This query below is only for informational purposes and is not editable. Admission Diagnosis/Problem: Back pain PT Evaluation and Treatment [CONS] Routine Please Evaluate and Treat. PT Reason for Consult: Ambulation This query below is only for informational purposes and is not editable. Admission Diagnosis/Problem: Back pain Hospital Course: Patient required Dilaudid as needed, Toradol scheduled and Tylenol, Tizanidine 4 mg every 6 hours as needed was added after admission. Pain was 6/10 throughout HOD#1, rated 6/10. Pain worse later in the day, CT spine ordered showed disc protrusion at L5-S1 but did not have any radicular symptoms. Last dose of Dilaudid was at 2 am. Around 4 am this morning she was startled awake and felt two "pops" in her back, her pain level went to 0/10. Feeling much better this morning. PT/OT to evaluate for exercises to help strengthen back, see report. - Patient Instructions Diet: Regular Diet as Tolerated Notify Provider of: Increased Pain, Nausea and/or Vomiting - Discharge Plan *PRESCRIPTION DRUG MONITORING PROGRAM REVIEWED*: Yes *COPY OF PRESCRIPTION DRUG MONITORING REPORT IN PATIENT ELLEN: Not Applicable ( no report found) Prescriptions/Med Rec: tiZANidine [Zanaflex] 4 mg PO Q6H PRN 4 Days #16 tablet PRN Reason: Muscle Spasm Home Medications: Home Meds Pnv No.95/Ferrous Fum/Folic AC [ Caplet] 1 tab PO DAILY 02/13/19 [ History] tiZANidine [Zanaflex] 4 mg PO Q6H PRN 4 Days #16 tablet 02/13/19 [Rx] Patient Handouts: Back Injury Prevention, [id number] Forms: ED Department Discharge Referrals: PCP,None [Primary Care Provider] - - Discharge Summary/Plan Comment DC Time >30 min.: No - Patient Data Vitals - Most Recent: Last Vital Signs Temp 37.1 C 02/13/19 00:00 Pulse 66 02/13/19 00:00 Resp 16 02/13/19 00:00 BP 96/58 L 02/13/19 00:00 Pulse Ox 98 02/13/19 00:00 Weight - Most Recent: 73.437 kg JOSE Results - Last 24 hrs: Microbiology 02/12/19 04:10 Urine Culture - Preliminary Urine, Voided MIXED POSITIVE CHARLEE DAY 1 Med Orders - Current: Current Medications Acetaminophen (Tylenol) 650 mg PO Q4H PRN PRN Reason: Pain (Mild 1-3)/fever Last Admin: 02/12/19 01:20 Dose: 650 mg Bisacodyl (Dulcolax) 5 mg PO DAILY PRN PRN Reason: Constipation Last Admin: 02/12/19 20:30 Dose: 5 mg Hydromorphone HCl (Dilaudid) 0.5 mg IVPUSH Q2H PRN PRN Reason: Pain (severe 7-10) Last Admin: 02/13/19 02:08 Dose: 0.5 mg Ketorolac Tromethamine (Toradol) 30 mg IVPUSH Q6H D[facility]ELA Stop: 02/16/19 23:34 Last Admin: 02/13/19 06:10 Dose: 30 mg Ondansetron HCl (Zofran) 4 mg IV Q6H PRN PRN Reason: Nausea/Vomiting Multivit/Folic Acid/Iron (-U) 1 each PO DAILY [facility] Last Admin: 02/13/19 09:26 Dose: 1 each Sodium Chloride (Saline Flush) 10 ml FLUSH ASDIRECTED PRN PRN Reason: Keep Vein Open Last Admin: 02/13/19 06:13 Dose: 10 ml Tizanidine HCl (Zanaflex) 4 mg PO Q6H [facility] Last Admin: 02/13/19 09:25 Dose: 4 mg Discontinued Medications Cyclobenzaprine HCl (Flexeril) 10 mg PO ONETIME ONE Stop: 02/11/19 23:33 Last Admin: 02/11/19 23:50 Dose: 10 mg Hydromorphone HCl (Dilaudid) 2 mg IVPUSH ONETIME ONE Stop: 02/11/19 22:42 Last Admin: 02/11/19 23:32 Dose: Not Given Hydromorphone HCl (Dilaudid) 1 mg IVPUSH ONETIME ONE Stop: 02/11/19 22:51 Last Admin: 02/11/19 22:55 Dose: 1 mg Hydromorphone HCl (Dilaudid) 1 mg IVPUSH ONETIME ONE Stop: 02/11/19 23:21 Last Admin: 02/11/19 23:32 Dose: Not Given Hydroxyzine HCl (Vistaril) 50 mg IM ONETIME ONE Stop: 02/11/19 21:58 Last Admin: 02/11/19 22:05 Dose: 50 mg Morphine Sulfate (Morphine) 10 mg IM ONETIME ONE Stop: 02/11/19 21:57 Last Admin: 02/11/19 22:05 Dose: Not Given Morphine Sulfate (Morphine) Confirm Administered Dose 10 mg .ROUTE .STK-MED ONE Stop: 02/11/19 22:02 Last Admin: 02/11/19 22:05 Dose: 10 mg Ondansetron HCl (Zofran) 8 mg IVPUSH ONETIME ONE Stop: 02/11/19 22:42 Last Admin: 02/11/19 22:55 Dose: 8 mg - Exam General: Reports: Alert, Oriented, Cooperative Lungs: Reports: Clear to Auscultation, Normal Respiratory Effort Cardiovascular: Reports: Regular Rate, Regular Rhythm GI/Abdominal Exam: Normal Bowel Sounds, Soft, Non-Tender, No Distention Back Exam: Denies: Muscle Spasm Extremities: Normal Range of Motion, No Pedal Edema. No: Leg Pain Psy/Mental Status: Reports: Alert, Normal Affect, Normal Mood
[2019-02-13] MEDS: Bisacodyl 5 MG Tab PO PRN (11:36)
[2019-02-13 14:40] VITALS: BP 106/65
== END 2019-02-13 12:57 | disposition home or self-care (01) ==
LOC: FB.ED 21:37 → FB.MS 23:32
PROVIDERS: ADMIT Family Medicine; ATTEND Family Medicine
DX: M51.27 Other intervertebral disc displacement, lumbosacral region (principal)
CPT/HCPCS: 36415; 72131; 80053; 81001; 84702; 85025; 87086; 96372; 96374; 96375; 96376; 97110; 97161; 99284; A9270; G0378; J1170; J1885; J2270; J2405; J3410